=== PATIENT | male | born 1955 | race Caucasian/White ===

== ENCOUNTER 2021-11-28 09:51 | Day surgery (SDC) | payer OTHER ==
[~2021-11-28] VITALS: Ht 185.4 cm; Wt 154.5 kg
[~2021-11-28 09:51] MED LIST: GLUC1TAB71 PO; HYDROmorphone 2 MG/ML INJ. IVP PRN; IV RINGERS,LACTATED 1000ML 1,000 ML IV SCH; MORPHINE SULFATE 2 MG/ML INJ. IVP PRN; PROCHLORPERAZINE 10 MG/2 ML VIAL. IVP PRN; ceFAZolin SODIUM 3 GM in IV DEXTROSE 5% 100ML 100 ML IV PRN; fentaNYL PF VIAL 100 MCG/2 ML VIAL IVP PRN
[2021-11-28 10:18] VITALS: BP 156/74
[2021-11-28] MEDS ORDERED: SUCCINYLCHOLINE 200 MG/10 ML VIAL. ONE (10:27)
[2021-11-28] MEDS ORDERED: PROPOFOL 10 MG/ML (20ML) VIAL. IV ONE ×2 (10:27→12:07)
[2021-11-28] MEDS ORDERED: ONDANSETRON PF 4 MG/2 ML VIAL. ONE (10:27)
[2021-11-28] MEDS ORDERED: DEXAMETHASONE SOD PHOS 4 MG/ML VIAL ONE (10:27)
[2021-11-28 10:37] LABS: BASO % 1 % (0-3); EOS # 0.2 x10^3/uL (0.0-0.7); EOS % 2 % (0-3); HEMATOCRIT 45.3 % (39.0-53.0); HEMOGLOBIN 15.7 g/dL (13.0-17.5); LYMPH # 1.9 x10^3/uL (1.0-4.8); LYMPH % 20 % (24-48); MEAN CORPUSCULAR HEMOGLOBIN 31 pg (25-35); MEAN CORPUSCULAR HGB CONC 35 g/dL (31-37); MEAN CORPUSCULAR VOLUME 88 fL (79-100); MONO # 0.9 x10^3/uL (0.0-1.1); MONO % 9 % (0-9); NEUT # 6.6 x10^3/uL (1.8-7.7); NEUT % 69 % (31-73); PLATELET COUNT 264 x10^3/uL (140-400); RED BLOOD COUNT 5.12 x10^6/uL (4.30-5.70); WHITE BLOOD COUNT 9.7 x10^3/uL (4.0-11.0)
--- NOTE | 2021-11-28 10:47 | EKG ---
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
[2021-11-28] MEDS ORDERED: fentaNYL PF VIAL 100 MCG/2 ML VIAL ONE (10:57)
[2021-11-28] MEDS ORDERED: LIDOCAINE 1%/EPI 1:100,000 20 ML VIAL. ONE (11:54)
[2021-11-28] MEDS ORDERED: EPINEPHrine 1 MG/ML VIAL ONE (12:26)
[2021-11-28] MEDS ORDERED: BALANCED SALT IRRIG OPHTH SOLN 15 ML BOTTLE. IRR ONE (12:29)
[2021-11-28] MEDS ORDERED: EPINEPHrine 1 MG/ML VIAL IRR ONE (12:29)
[2021-11-28] MEDS ORDERED: LIDOCAINE 1%/EPI 1:100,000 20 ML VIAL. INJ ONE (12:29)
[2021-11-28] MEDS ORDERED: SEVOFLURANE 61 TO 120 MINUTES. IH ONE (12:44)
[2021-11-28] MEDS ORDERED: GELATIN SPONGE SIZE 100. ONE (12:46)
[2021-11-28] MEDS ORDERED: BALANCED SALT IRRIG OPHTH SOLN 15 ML BOTTLE. ONE (12:56)
[2021-11-28] MEDS ORDERED: BACITRACIN TOPICAL OINT PACKET. TP ONE (13:15)
[2021-11-28] MEDS ORDERED: ACET500T68 PO (13:57)
[2021-11-28] MEDS ORDERED: IBUP-1060 PO (13:57)
[2021-11-28] MEDS ORDERED: LIDO5JEL3 TP (13:57)
[2021-11-28] MEDS ORDERED: BACI28.34 TP (13:57)
[2021-11-28] MEDS ORDERED: CEPH500T PO (13:57)
--- NOTE | 2021-11-28 14:04 | PDOC4 ---
OPERATIVE NOTE Date: Date: November 28, 2021 Pre-Op Diagnosis: Rhinophyma Post-Op Diagnosis: Same Procedure Performed: Excision of rhinophyma Surgeon: Kiara Finch MD Anesthesia Type: General LMA Blood Loss: 10 mL Specimans Obtained: Rhinophyma Findings: See operative note Complications: None Operative Note: Informed consent was obtained in the perioperative holding area with the patient and his . The risk of bleeding, infection, contour deformity, prominent scarring, notching of the ala, removing too much or too little rhinophyma, need for additional or revision procedures were discussed with the patient. He understood and desired to proceed. The patient was taken to the operating room and placed on the OR table in the supine position. A timeout was completed verifying the correct patient and correct procedure. IV antibiotics were given. SCDs were placed and functi oning. General anesthesia was induced. The patient's nose was anesthetized with 1% lidocaine with 1: 100,000 epinephrine. The face was prepped carefully with Betadine and draped in a sterile fashion. I began with a #10 scalpel to debulk the visible rhinophyma, beginning at the nasal ala and progressing to the nasal dorsum and sidewalls distally. I then used a combination of curved iris scissors with forceps, dermabrasion, and loop cautery to finally contour the nose and achieve hemostasis. The site was cleansed with saline and dressed with bacitracin ointment, Xeroform gauze, 4 x 4 gauze, and silk tape. Eyes were irrigated with BSS solution bilaterally. The patient tolerated the procedure well was transferred to the PACU in stable condition. KIARA FINCH MD November 28, 2021 14:04
[2021-11-28 14:41] VITALS: BP 153/75
== END 2021-11-28 15:17 | disposition home or self-care (01) ==
LOC: SURG 09:51
PROVIDERS: ATTEND Plastic Surgery
DX: L71.1 Rhinophyma (principal); M19.90 Unspecified osteoarthritis, unspecified site; Z87.891 Personal history of nicotine dependence; Z79.899 Other long term (current) drug therapy; Z98.890 Other specified postprocedural states; Z20.822 Contact with and (suspected) exposure to COVID-19
CPT/HCPCS: 30120; 36415; 85025; 93005; A4213; A4215; A4364; A4930; A6223; C9803; J0171; J0330; J1100; J2405; J2704; J3010; J3490; U0003; A4452